=== PATIENT | male | born 1995 | race Two or more races ===

== ENCOUNTER 2020-04-16 16:06 | Emergency (ER) | payer SELFPAY ==
[~2020-04-16] VITALS: Ht 172.7 cm; Wt 79.4 kg
[2020-04-16] MEDS ORDERED: IBUPROFEN 600 MG TABLET PO ONE ×2 (16:30→16:41)
[2020-04-16] MEDS ORDERED: BACI/NEOM/POLY B OINT PKT 1 UDPKT PACKET TP ONE (16:30)
[2020-04-16] MEDS ORDERED: TDAP [DIPH/PERTUSSIS/TET] 0.5 ML VIAL IM ONE ×2 (16:30→16:43)
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
--- NOTE | 2020-04-16 18:59 | NUR ---
Melina saba in [facility] - 04/16/20 at 1902 by MARCO Patient ambulatory. Patient discharged to home in stable condition. Written and verbal after care instructions given. Patient verbalizes understanding of instruction.
--- NOTE | 2020-04-16 19:01 | NUR ---
Melina saba in [facility] - 04/16/20 at 1901 by MARIPOSA Patient discharged to home in stable condition. Written and verbal after care instructions given. Patient verbalizes understanding of instruction. Pt ambulatory with a steady gait
--- NOTE | 2020-04-16 19:01 | NUR ---
Patient discharged to home in stable condition. Written and verbal after care instructions given. Patient verbalizes understanding of instruction. Pt ambulatory with a steady gait w/ a limp
[2020-04-16 19:06] VITALS: BP 138/75
== END 2020-04-16 19:06 | disposition home or self-care (01) ==
LOC: ER 16:12
DX: S80.211A Abrasion, right knee, initial encounter (principal); M25.551 Pain in right hip; M25.571 Pain in right ankle and joints of right foot; M79.671 Pain in right foot; V09.9XXA Pedestrian injured in unspecified transport accident, initial encounter; Y93.55 Activity, bike riding; Y92.89 Other specified places as the place of occurrence of the external cause; Y99.8 Other external cause status
CPT/HCPCS: 73502; 73564-TC; 73610-TC; 73630-TC; 90715